=== PATIENT | female | born 1970 | race Caucasian/White ===

== ENCOUNTER → 2023-03-16 16:55 | Outpatient (CLI) | payer OTHER, SELFPAY ==
--- NOTE | 2023-03-16 | DI.MRI.S_ITS ---
PROCEDURE: MR LUMBAR SPINE WO CON INDICATIONS: RADICULOPATHY TECHNIQUE: Noncontrast sagittal T1 spin echo and T2 fast echo, sagittal STIR, and T2 fast spin echo through the lumbar spine. In cases with scoliosis, additional coronal T2 fast spin echo may be performed. COMPARISON: [facility] [place], CR, XR LUMBAR SPINE 2 OR 3 VIEWS, 03/08/2023, 15:02. FINDINGS: Image quality: Excellent. Alignment and Curvature: 6 mm retrolisthesis of L5 on S1. The other vertebral bodies are normally aligned. Bone Marrow: Marrow is of normal overall signal. No acute vertebral body compression fractures. Spinal Cord: Conus medullaris terminates at the L1 level. Visualized cord demonstrates normal signal and size. Paraspinous Soft Tissues: No paravertebral masses. T12-L1: Normal appearance. L1-L2: Normal appearance. L2-L3: Disc bulge. Facet hypertrophy. Borderline canal stenosis. No foraminal stenosis. L3-L4: Facet hypertrophy. Epidural lipomatosis. Borderline canal stenosis. No significant foraminal stenosis. L4-L5: Disc bulge. Facet hypertrophy. Epidural lipomatosis. Borderline canal stenosis. No significant foraminal stenosis. L5-S1: Severe chronic disc height loss. Retrolisthesis of L5 on S1. Associated diffuse disc bulge. Facet and ligament hypertrophy. There is mild canal stenosis. There is a mild degree of impingement on the bilateral S1 nerve roots in the bilateral lateral recesses. There is moderate bilateral foraminal narrowing. IMPRESSION: 1. There is multilevel underlying facet arthropathy. 2. Canal stenosis is borderline at L2-L3, L3-L4, and L4-L5. It is mild at L5-S1. 2. Disc material mildly impinges on the bilateral S1 nerve roots in the bilateral lateral recesses at L5-S1. Recommend correlation for presence or absence of S1 radicular symptoms. Dictated by: Bennie Washington M.D. on 03/17/2023 at 12:23 Approved by: Bennie Washington M.D. on 03/17/2023 at 12:27
== END ==
PROVIDERS: PCP Family Medicine; Referring Provider Physical Medicine & Rehabilitation; Visit Provider Physical Medicine & Rehabilitation
DX: M47.26 Other spondylosis with radiculopathy, lumbar region (principal); M47.27 Other spondylosis with radiculopathy, lumbosacral region; M48.07 Spinal stenosis, lumbosacral region
CPT/HCPCS: 72148